=== PATIENT | male | born 1940 | race African-American/Black ===

== ENCOUNTER 2017-09-27 09:04 | Emergency (ER) | payer OTHER ==
[~2017-09-27] VITALS: Ht 182.9 cm; Wt 109.0 kg
[2017-09-27 09:35] LABS: BASOPHILS % 0.6 % (0.0-2.0); EOSINOPHILS % 3.8 % (0.0-5.0); HEMATOCRIT. 35.8 % (42.0-52.0); LYMPHOCYTES % 15.1 % (20.0-50.0); MEAN CORPUSCULAR HEMOGLOBIN 30.9 pg (28.0-32.0); MEAN CORPUSCULAR VOLUME 92.3 fL (80.0-94.0); MEAN PLATELET VOLUME 8.5 fl (7.4-10.4); MONOCYTES % 7.4 % (2.0-8.0); NEUTROPHILS % 73.1 % (40.0-76.0); PLATELET 189 x1000/uL (130-400); RED BLOOD CELL COUNT 3.88 mill/uL (4.7-6.1); RED CELL DISTRIBUTION WIDTH 14.1 % (11.6-14.6)
[2017-09-27 09:39] LABS: CHLORIDE 101 mEq/L (98-107)
[2017-09-27 09:40] LABS: INR 1.1
[2017-09-27 15:43] VITALS: BP 179/71
== END 2017-09-27 15:45 | disposition home or self-care (01) ==
LOC: ER 09:17
DX: M25.562 Pain in left knee (principal); I13.11 Hypertensive heart and chronic kidney disease without heart failure, with stage 5 chronic kidney disease, or end stage renal disease; E11.22 Type 2 diabetes mellitus with diabetic chronic kidney disease; N18.6 End stage renal disease; Z99.2 Dependence on renal dialysis; Z79.4 Long term (current) use of insulin; I25.10 Atherosclerotic heart disease of native coronary artery without angina pectoris; Z95.1 Presence of aortocoronary bypass graft
CPT/HCPCS: 36415; 73560; 73700; 80053; 85025; 85610; 99285; L1830

== ENCOUNTER 2022-02-03 01:14 | Emergency (ER) | payer OTHER ==
[~2022-02-03] VITALS: Ht 177.8 cm; Wt 91.0 kg
[2022-02-03 01:16] VITALS: BP 113/60
[2022-02-03] MEDS ORDERED: TETRACAINE 0.5% OPHTH DROPS 4ML RIGHTEYE ONE (02:30)
== END 2022-02-03 12:00 | disposition home or self-care (01) ==
LOC: ER 01:14
DX: H43.391 Other vitreous opacities, right eye (principal); I10 Essential (primary) hypertension; E78.00 Pure hypercholesterolemia, unspecified; E11.9 Type 2 diabetes mellitus without complications; Z20.822 Contact with and (suspected) exposure to COVID-19
CPT/HCPCS: 82962; 87426; 99283

== ENCOUNTER 2022-10-20 09:40 | Emergency (ER) | payer OTHER ==
[~2022-10-20] VITALS: Ht 185.4 cm; Wt 98.0 kg
[2022-10-20 09:58] VITALS: BP 122/68
[2022-10-20] MEDS ORDERED: CETI-338 PO (12:40)
== END 2022-10-20 12:55 | disposition home or self-care (01) ==
LOC: ER 09:40
DX: B34.9 Viral infection, unspecified (principal); J30.9 Allergic rhinitis, unspecified; I10 Essential (primary) hypertension; E78.00 Pure hypercholesterolemia, unspecified; E11.9 Type 2 diabetes mellitus without complications; Z20.822 Contact with and (suspected) exposure to COVID-19; Z86.73 Personal history of transient ischemic attack (TIA), and cerebral infarction without residual deficits
CPT/HCPCS: 71045; 87426; 87804; 99284; C9803